=== PATIENT | male | born 1980 | race Native Hawaiian/Other Pacific Islander ===

== ENCOUNTER 2016-11-14 15:20 | Emergency (ER) | payer OTHER ==
[2016-11-14] MEDS ORDERED: KETOROLAC TROMETHAMINE 30 MG/ML 1 ML VIAL ONE (15:56)
[2016-11-14 16:01] LABS: SPECIFIC GRAVITY 1.025 (1.001-1.030); URINE APPEARANCE CLEAR; URINE BILIRUBIN NEGATIVE (NEGATIVE); URINE BLOOD TRACE (NEGATIVE); URINE COLOR AMBER; URINE GLUCOSE (UA) NEGATIVE (NEGATIVE); URINE LEUKOCYTE ESTERASE NEGATIVE (NEGATIVE); URINE NITRITE NEGATIVE (NEGATIVE); URINE PROTEIN TRACE (NEGATIVE); URINE UROBILINOGEN NORMAL (0-1 mg/dl)
[2016-11-14 16:05] LABS: ABSOLUTE NEUTROPHIL COUNT 5.3 K/mm3 (1.8-7.7); BASO % 0.2 % (0.2-1.0); EOS # 0.1 (0.0-0.5); EOS % 1.2 % (0.9-2.9); HEMATOCRIT 43.4 % (32.0-52.0); HEMOGLOBIN 14.4 gm/l (14.0-18.0); IMM NEUT% 0.2 % (0-1); LYMPH # 2.2 (1.0-4.8); LYMPH % 26.6 % (15-45); MEAN CELL VOLUME 80.4 fl (80.0-94.0); MEAN CORPUSCULAR HEMOGLOBIN 26.7 pg (27.0-31.0); MEAN CORPUSCULAR HGB CONC 33.2 g/dl (33.0-37.0); MEAN PLATELET VOLUME 10.2 fl (7.4-10.4); MONO # 0.6 (0.0-0.8); MONO % 7.8 % (4-12); PLATELET COUNT 292 K/mm3 (130-400); RED CELL DISTRIBUTION WIDTH 13.3 % (11.5-14.5)
[2016-11-14 16:13] LABS: URINE EPITHELIAL CELLS 0 /hpf; URINE RBC 0-1 /hpf; URINE WBC NEG /hpf
[2016-11-14 16:14] LABS: URINE BACTERIA FEW
[2016-11-14 16:28] LABS: ALBUMIN 3.9 gm/dL (3.5-5.7); CALCIUM 9.5 mg/dL (8.6-10.3)
--- NOTE | 2016-11-14 16:40 | CT ---
Exam: CT abdomen and pelvis without contrast COMPARISON: None INDICATION: Right flank pain. TECHNIQUE: CT examination of the abdomen and pelvis was obtained without contrast using a renal stone protocol. FINDINGS: There is a 4 x 2 mm calculus at the right UVJ which is associated with minor asymmetric fullness of the right ureter minor periureteral inflammatory stranding but no hydronephrosis. Hyperdense medullary pyramids are seen, and solitary nonobstructing calculi are seen within both kidneys which measure 9 mm in the upper pole of the right kidney and 3 mm the upper pole of the left kidney. No additional well-developed calculi are seen within either kidney, ureter or bladder. The bowel, including the appendix, is within normal limits and there is no bowel obstruction, free air or free intraperitoneal fluid. There is a tiny fat-containing left inguinal hernia. The gallbladder is contracted in this nonfasting state. The liver, spleen, pancreas and adrenal glands are unremarkable on this noncontrast exam. Lung bases are clear. No worrisome osseous abnormality is identified. IMPRESSION: 4 mm calculus at the right UVJ which is associated with minor fullness of the right ureter and periureteral stranding but no hydronephrosis. 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 Message left for Dr. Molina with can in the ED at 1637 hours 11/14/2016.
== END 2016-11-14 16:40 | disposition home or self-care (01) ==
LOC: ED 15:20
DX: N20.1 Calculus of ureter (principal); F32.9 Major depressive disorder, single episode, unspecified; F17.290 Nicotine dependence, other tobacco product, uncomplicated; Z79.899 Other long term (current) drug therapy
CPT/HCPCS: 85025; 80053; 81001; 74176; 99283 ×2; 96374; J1885